=== PATIENT | female | born 1950 | race Two or more races ===

== ENCOUNTER 2023-11-24 14:08 | Inpatient (IN) | payer MEDICARE ==
[~2023-11-24] VITALS: Ht 154.9 cm; Wt 74.5 kg
[2023-11-24 15:10] LABS: BASOPHILS # (AUTO) 0.1 K/uL (0.0-0.2); BASOPHILS % (AUTO) 0.9 % (0.0-2.0); EOSINOPHILS % (AUTO) 0.6 % (0.0-6.0); HEMATOCRIT 39 % (33-45); HEMOGLOBIN 13.2 g/dL (11.5-14.8); LYMPHOCYTES # (AUTO) 1.8 K/uL (0.8-4.8); LYMPHOCYTES % (AUTO) 23.4 % (20.0-44.0); MEAN CORPUSCULAR HEMOGLOBIN 32 PG (26.0-33.0); MEAN CORPUSCULAR HGB CONC 34 g/dl (31.0-36.0); MEAN CORPUSCULAR VOLUME 95 fL (82-100); MONOCYTES # (AUTO) 0.5 K/uL (0.1-1.30); MONOCYTES % (AUTO) 6.4 % (2.0-12.0); NEUTROPHILS # (AUTO) 5.4 K/uL (1.8-8.9); NEUTROPHILS % (AUTO) 68.7 % (43.0-81.0); PLATELET COUNT (AUTO) 328 K/uL (150-450); RED BLOOD CELL COUNT(AUTO) 4.08 MIL/uL (4.0-5.2); RED CELL DISTRIBUTION WIDTH 13.6 % (11.5-15.0); WHITE BLOOD COUNT (AUTO) 7.9 K/uL (4.3-11.0)
[2023-11-24] MEDS ORDERED: LOSA50TA39 PO (15:14)
[2023-11-24] MEDS ORDERED: CHOL200074 PO (15:14)
[2023-11-24] MEDS ORDERED: AMLO-212 PO (15:14)
[2023-11-24 15:19] LABS: CALCIUM, SERUM 8.7 mg/dL (8.5-10.1); CARBON DIOXIDE 29 mmol/L (21-32); CHLORIDE 100 mmol/L (98-107); CREATININE 0.7 mg/dL (0.6-1.3); GLUCOSE 109 mg/dL (74-106); SODIUM SERUM 138 mmol/L (136-145); UREA NITROGEN, BLOOD 10 mg/dL (7-18)
[2023-11-24 15:21] LABS: D-DIMER 0.31 mg/L(FEU (0.17-0.50); INR 0.99 (0.91-1.10); PARTIAL THROMBOPLASTIN TIME 25.4 SEC (24.3-34.3); PROTHROMBIN TIME 10.5 SECS (9.2-11.1)
[2023-11-24 15:33] LABS: NT-PRO BNP 60 pg/mL (0-125)
[2023-11-24] MEDS: ASPIRIN 81 MG TAB.CHEW PO SCH (17:30)
[2023-11-24] MEDS ORDERED: ONDANSETRON HCL/PF 4 MG/2 ML VIAL IVP PRN (17:30)
[2023-11-24] MEDS ORDERED: ACETAMINOPHEN 325 MG TABLET PO PRN (17:30)
[2023-11-24] MEDS: POTASSIUM CHLORIDE 20 MEQ TAB.PRT.SR PO ONE (17:39)
[2023-11-24] MEDS: ENOXAPARIN SODIUM 40 MG/0.4 ML DISP.SYRIN SQ SCH (17:39)
[2023-11-24 17:45] VITALS: BP 153/94; TEMP 98.2; O2SAT 95
[2023-11-24 20:13] VITALS: BP 122/68; TEMP 98.1; O2SAT 93
[2023-11-24 20:50] VITALS: BP 122/68; TEMP 98.1; O2SAT 95
[2023-11-24] MEDS: ATORVASTATIN 10 MG TABLET PO SCH (21:22)
[2023-11-25 00:05] VITALS: BP 131/79; TEMP 98.2; O2SAT 93
[2023-11-25 04:09] VITALS: BP 156/88; TEMP 97.5; O2SAT 95
[2023-11-25 07:50] LABS: BASOPHILS # (AUTO) 0.1 K/uL (0.0-0.2); BASOPHILS % (AUTO) 0.6 % (0.0-2.0); EOSINOPHILS # (AUTO) 0.1 K/uL (0.0-0.7); EOSINOPHILS % (AUTO) 1.3 % (0.0-6.0); HEMATOCRIT 42 % (33-45); LYMPHOCYTES # (AUTO) 2.1 K/uL (0.8-4.8); LYMPHOCYTES % (AUTO) 26.7 % (20.0-44.0); MEAN CORPUSCULAR HEMOGLOBIN 32 PG (26.0-33.0); MEAN CORPUSCULAR HGB CONC 34 g/dl (31.0-36.0); MEAN CORPUSCULAR VOLUME 96 fL (82-100); MONOCYTES # (AUTO) 0.6 K/uL (0.1-1.30); MONOCYTES % (AUTO) 7.3 % (2.0-12.0); NEUTROPHILS # (AUTO) 5.1 K/uL (1.8-8.9); NEUTROPHILS % (AUTO) 64.1 % (43.0-81.0); PLATELET COUNT (AUTO) 336 K/uL (150-450); RED BLOOD CELL COUNT(AUTO) 4.34 MIL/uL (4.0-5.2); RED CELL DISTRIBUTION WIDTH 13.9 % (11.5-15.0); WHITE BLOOD COUNT (AUTO) 7.9 K/uL (4.3-11.0)
[2023-11-25 07:54] LABS: CALCIUM, SERUM 8.7 mg/dL (8.5-10.1); CREATININE 0.8 mg/dL (0.6-1.3); MAGNESIUM 2.3 mg/dL (1.8-2.4); POTASSIUM 3.2 mmol/L (3.5-5.1)
[2023-11-25 08:00] VITALS: BP 163/89; TEMP 98.2; O2SAT 94
[2023-11-25] MEDS: LOSARTAN POTASSIUM 50 MG TABLET PO SCH (08:53)
[2023-11-25] MEDS: AMLODIPINE BESYLATE 5 MG TABLET PO SCH (08:54)
[2023-11-25] MEDS: CHOLECALCIFEROL 1,000 UNIT TABLET (VIT D3) PO SCH (08:54)
[2023-11-25 09:28] LABS: THYROID STIMULATING HORMONE 5.45 uIU/mL (0.358-3.74)
[2023-11-25] MEDS: VALSARTAN 80 MG TABLET PO SCH (10:08)
[2023-11-25] MEDS: POTASSIUM CHLORIDE 20 MEQ TAB.PRT.SR PO ONE (11:40)
[2023-11-25 16:00] VITALS: BP 167/94; TEMP 97.9; O2SAT 98
[2023-11-25] MEDS ORDERED: VALS80TA31 PO (18:24)
[2023-11-25] MEDS ORDERED: ATORVASTATIN 10 MG TABLET PO SCH (22:00)
== END 2023-11-25 20:40 | disposition home or self-care (01) | DRG 303 ==
LOC: ER 14:11 → TELE 16:30
PROVIDERS: ADMIT Nurse Practitioner Acute Care; ATTEND Nurse Practitioner Acute Care
DX: I25.10 Atherosclerotic heart disease of native coronary artery without angina pectoris (principal); E66.2 Morbid (severe) obesity with alveolar hypoventilation; D68.69 Other thrombophilia; E03.9 Hypothyroidism, unspecified; E78.5 Hyperlipidemia, unspecified; E87.6 Hypokalemia; I10 Essential (primary) hypertension; Z68.31 Body mass index [BMI] 31.0-31.9, adult
CPT/HCPCS: 36415; 71045-TC; 80048-TC; 80061-TC; 83735-TC; 83880; 84100-TC; 84439-TC; 84443-TC; 84484-TC; 85025-TC; 85378-TC; 85730-TC; 93307-TC; G0378; J1650

== ENCOUNTER 2024-05-30 10:04 | Inpatient (IN) | payer MEDICARE, OTHER ==
[~2024-05-30] VITALS: Ht 154.9 cm; Wt 59.4 kg
[~2024-05-30 10:04] MED LIST: AMLO-212 PO; LOSA50TA39 PO; VALS80TA31 PO
[2024-05-30 10:36] LABS: BASOPHILS % (AUTO) 0.5 % (0.0-2.0); EOSINOPHILS # (AUTO) 0.1 K/uL (0.0-0.7); EOSINOPHILS % (AUTO) 2.2 % (0.0-6.0); HEMATOCRIT 37 % (33-45); HEMOGLOBIN 12.9 g/dL (11.5-14.8); LYMPHOCYTES # (AUTO) 2.5 K/uL (0.8-4.8); LYMPHOCYTES % (AUTO) 43.5 % (20.0-44.0); MEAN CORPUSCULAR HEMOGLOBIN 33 PG (26.0-33.0); MEAN CORPUSCULAR HGB CONC 35 g/dl (31.0-36.0); MEAN CORPUSCULAR VOLUME 96 fL (82-100); MONOCYTES # (AUTO) 0.5 K/uL (0.1-1.30); MONOCYTES % (AUTO) 8.2 % (2.0-12.0); NEUTROPHILS # (AUTO) 2.6 K/uL (1.8-8.9); NEUTROPHILS % (AUTO) 45.6 % (43.0-81.0); PLATELET COUNT (AUTO) 269 K/uL (150-450); RED CELL DISTRIBUTION WIDTH 13.8 % (11.5-15.0); WHITE BLOOD COUNT (AUTO) 5.7 K/uL (4.3-11.0)
[2024-05-30 10:47] LABS: CALCIUM, SERUM 8.8 mg/dL (8.5-10.1); CARBON DIOXIDE 34 mmol/L (21-32); CHLORIDE 105 mmol/L (98-107); CREATININE 0.9 mg/dL (0.6-1.3); GLUCOSE 104 mg/dL (74-106); POTASSIUM 2.9 mmol/L (3.5-5.1); SODIUM SERUM 139 mmol/L (136-145); UREA NITROGEN, BLOOD 14 mg/dL (7-18)
[2024-05-30 10:52] LABS: ALANINE AMINOTRANSFERASE 15 U/L (12-78); ALBUMIN 3.5 g/dL (3.4-5.0); ALKALINE PHOSPHATASE 62 U/L (46-116); ASPARTATE AMINOTRANSFERASE 15 U/L (15-37); BILIRUBIN,DIRECT 0.2 mg/dL (0.0-0.2); BILIRUBIN,TOTAL 1.5 mg/dL (0.2-1.0); TOTAL PROTEIN, SERUM 7.3 g/dL (6.4-8.2)
[2024-05-30] MEDS ORDERED: LEVO112T7 PO (11:02)
[2024-05-30] MEDS ORDERED: MIRT-90 PO (11:02)
[2024-05-30] MEDS ORDERED: ONDANSETRON HCL/PF 4 MG/2 ML VIAL IVP PRN (12:00)
[2024-05-30] MEDS ORDERED: hydrALAZINE HCL IV 20 MG VIAL IV PRN (12:00)
[2024-05-30] MEDS ORDERED: MORPHINE SULFATE INJ 2 MG/ML DISP.SYRIN IV PRN (12:00)
[2024-05-30] MEDS ORDERED: ACETAMINOPHEN 325 MG TABLET PO PRN (12:00)
[2024-05-30 12:45] VITALS: BP 152/86; TEMP 98.3; O2SAT 94
[2024-05-30] MEDS: ENOXAPARIN SODIUM 40 MG/0.4 ML DISP.SYRIN SQ SCH (13:13)
[2024-05-30] MEDS: MIRTAZAPINE 15 MG TABLET PO SCH (17:59)
[2024-05-30] MEDS: POTASSIUM CHLORIDE 20 MEQ TAB.PRT.SR PO SCH (18:33)
[2024-05-30 20:00] VITALS: BP 137/76; TEMP 97.5; O2SAT 94
[2024-05-31] VITALS: BP 126/75; TEMP 98.1; O2SAT 94
[2024-05-31 04:00] VITALS: BP 150/90; TEMP 98.6; O2SAT 96
[2024-05-31 07:39] LABS: BASOPHILS # (AUTO) 0.1 K/uL (0.0-0.2); BASOPHILS % (AUTO) 0.9 % (0.0-2.0); EOSINOPHILS # (AUTO) 0.1 K/uL (0.0-0.7); EOSINOPHILS % (AUTO) 2.1 % (0.0-6.0); HEMATOCRIT 37 % (33-45); HEMOGLOBIN 12.6 g/dL (11.5-14.8); LYMPHOCYTES # (AUTO) 3.9 K/uL (0.8-4.8); LYMPHOCYTES % (AUTO) 54.6 % (20.0-44.0); MEAN CORPUSCULAR HEMOGLOBIN 34 PG (26.0-33.0); MEAN CORPUSCULAR HGB CONC 35 g/dl (31.0-36.0); MEAN CORPUSCULAR VOLUME 97 fL (82-100); MONOCYTES # (AUTO) 0.6 K/uL (0.1-1.30); MONOCYTES % (AUTO) 8.5 % (2.0-12.0); NEUTROPHILS # (AUTO) 2.4 K/uL (1.8-8.9); NEUTROPHILS % (AUTO) 33.9 % (43.0-81.0); PLATELET COUNT (AUTO) 273 K/uL (150-450); RED BLOOD CELL COUNT(AUTO) 3.77 MIL/uL (4.0-5.2); RED CELL DISTRIBUTION WIDTH 14.4 % (11.5-15.0); WHITE BLOOD COUNT (AUTO) 7.1 K/uL (4.3-11.0)
[2024-05-31 07:56] LABS: ALBUMIN 3.2 g/dL (3.4-5.0); BILIRUBIN,TOTAL 1.2 mg/dL (0.2-1.0); CALCIUM, SERUM 8.9 mg/dL (8.5-10.1); CREATININE 0.9 mg/dL (0.6-1.3); MAGNESIUM 2.3 mg/dL (1.8-2.4); PHOSPHORUS 3.8 mg/dL (2.5-4.9); POTASSIUM 3.5 mmol/L (3.5-5.1); TOTAL PROTEIN, SERUM 6.9 g/dL (6.4-8.2)
[2024-05-31 08:00] VITALS: BP 175/93; TEMP 97.5; O2SAT 96
[2024-05-31] MEDS ORDERED: AMLODIPINE BESYLATE 5 MG TABLET PO SCH (09:00)
[2024-05-31] MEDS: DOCUSATE SODIUM 100 MG CAPSULE PO SCH (09:34)
[2024-05-31] MEDS: AMLODIPINE BESYLATE 5 MG TABLET PO SCH (09:34)
[2024-05-31] MEDS: LEVOTHYROXINE SODIUM 112 MCG TABLET PO SCH (09:34)
[2024-05-31] MEDS: POLYETHYLENE GLYCOL 3350 17 GM POWD.PACK PO SCH (09:34)
[2024-05-31 12:00] VITALS: BP 145/81; TEMP 97; O2SAT 96
[2024-05-31] MEDS ORDERED: AMLO-212 PO (12:28)
[2024-05-31] MEDS ORDERED: ATOR20TA PO (12:28)
[2024-05-31] MEDS ORDERED: ASPI-1420 PO (12:28)
[2024-05-31 18:15] VITALS: BP 135/79
== END 2024-05-31 18:25 | disposition home or self-care (01) | DRG 313 ==
LOC: ER 10:22 → TELE1 12:24
PROVIDERS: ADMIT Internal Medicine; ATTEND Internal Medicine
DX: R07.9 Chest pain, unspecified (principal); E03.9 Hypothyroidism, unspecified; E87.6 Hypokalemia; I10 Essential (primary) hypertension; Z79.890 Hormone replacement therapy; Z79.899 Other long term (current) drug therapy
CPT/HCPCS: 36415; 71045-TC; 80048-TC; 80053-TC; 80076-TC; 83735-TC; 84100-TC; 84484-TC; 85025-TC; 85378-TC; G0378; J1650

== ENCOUNTER 2024-07-23 11:54 | Inpatient (IN) | payer MEDICARE, OTHER ==
[~2024-07-23] VITALS: Ht 154.9 cm; Wt 57.2 kg
[~2024-07-23 11:54] MED LIST changes: +ASPI-1420 PO; +ATOR20TA PO; +LEVO112T7 PO; -LOSA50TA39 PO; +MIRT-90 PO; -VALS80TA31 PO
[2024-07-23 12:34] LABS: BASOPHILS # (AUTO) 0.1 K/uL (0.0-0.2); BASOPHILS % (AUTO) 0.8 % (0.0-2.0); EOSINOPHILS # (AUTO) 0.1 K/uL (0.0-0.7); EOSINOPHILS % (AUTO) 1.2 % (0.0-6.0); HEMATOCRIT 37 % (33-45); HEMOGLOBIN 12.7 g/dL (11.5-14.8); LYMPHOCYTES # (AUTO) 2.2 K/uL (0.8-4.8); LYMPHOCYTES % (AUTO) 34.1 % (20.0-44.0); MEAN CORPUSCULAR HEMOGLOBIN 34 PG (26.0-33.0); MEAN CORPUSCULAR HGB CONC 34 g/dl (31.0-36.0); MEAN CORPUSCULAR VOLUME 98 fL (82-100); MONOCYTES # (AUTO) 0.4 K/uL (0.1-1.30); MONOCYTES % (AUTO) 6.5 % (2.0-12.0); NEUTROPHILS # (AUTO) 3.8 K/uL (1.8-8.9); NEUTROPHILS % (AUTO) 57.4 % (43.0-81.0); PLATELET COUNT (AUTO) 357 K/uL (150-450); RED BLOOD CELL COUNT(AUTO) 3.79 MIL/uL (4.0-5.2); WHITE BLOOD COUNT (AUTO) 6.6 K/uL (4.3-11.0)
[2024-07-23 12:53] LABS: CALCIUM, SERUM 8.7 mg/dL (8.5-10.1); CARBON DIOXIDE 34 mmol/L (21-32); CHLORIDE 103 mmol/L (98-107); CREATININE 0.9 mg/dL (0.6-1.3); GLUCOSE 99 mg/dL (74-106); POTASSIUM 3.3 mmol/L (3.5-5.1); SODIUM SERUM 139 mmol/L (136-145); UREA NITROGEN, BLOOD 14 mg/dL (7-18)
[2024-07-23] MEDS ORDERED: LEVO100T9 PO (13:49)
[2024-07-23] MEDS ORDERED: ONDANSETRON HCL/PF 4 MG/2 ML VIAL IVP PRN (18:00)
[2024-07-23] MEDS ORDERED: ACETAMINOPHEN 325 MG TABLET PO PRN (18:00)
[2024-07-23 20:00] VITALS: BP 143/79; TEMP 98.6; O2SAT 97
[2024-07-23 20:05] VITALS: BP 143/79; TEMP 98.6; O2SAT 97
[2024-07-23] MEDS: MIRTAZAPINE 15 MG TABLET PO SCH (20:53)
[2024-07-23] MEDS: ENOXAPARIN SODIUM 40 MG/0.4 ML DISP.SYRIN SQ SCH (20:53)
[2024-07-23] MEDS: ATORVASTATIN 10 MG TABLET PO SCH (21:51)
[2024-07-23] MEDS: POTASSIUM CHLORIDE 20 MEQ TAB.PRT.SR PO ONE (22:58)
[2024-07-24] VITALS: BP 134/69; TEMP 98.2; O2SAT 95
[2024-07-24 04:00] VITALS: BP 101/64; TEMP 98.1; O2SAT 96
[2024-07-24 05:03] VITALS: BP 101/64; TEMP 98.1; O2SAT 19
[2024-07-24 06:27] LABS: CREATININE 0.8 mg/dL (0.6-1.3); MAGNESIUM 2.2 mg/dL (1.8-2.4); PHOSPHORUS 4.5 mg/dL (2.5-4.9); POTASSIUM 3.6 mmol/L (3.5-5.1)
[2024-07-24 06:40] LABS: BASOPHILS # (AUTO) 0.1 K/uL (0.0-0.2); BASOPHILS % (AUTO) 0.9 % (0.0-2.0); EOSINOPHILS # (AUTO) 0.1 K/uL (0.0-0.7); EOSINOPHILS % (AUTO) 1.6 % (0.0-6.0); HEMATOCRIT 35 % (33-45); HEMOGLOBIN 12.3 g/dL (11.5-14.8); LYMPHOCYTES # (AUTO) 3.7 K/uL (0.8-4.8); LYMPHOCYTES % (AUTO) 48.4 % (20.0-44.0); MEAN CORPUSCULAR HEMOGLOBIN 34 PG (26.0-33.0); MEAN CORPUSCULAR HGB CONC 35 g/dl (31.0-36.0); MEAN CORPUSCULAR VOLUME 96 fL (82-100); MONOCYTES # (AUTO) 0.5 K/uL (0.1-1.30); MONOCYTES % (AUTO) 7.2 % (2.0-12.0); NEUTROPHILS # (AUTO) 3.2 K/uL (1.8-8.9); NEUTROPHILS % (AUTO) 41.9 % (43.0-81.0); PLATELET COUNT (AUTO) 340 K/uL (150-450); RED BLOOD CELL COUNT(AUTO) 3.68 MIL/uL (4.0-5.2); RED CELL DISTRIBUTION WIDTH 13.3 % (11.5-15.0); WHITE BLOOD COUNT (AUTO) 7.6 K/uL (4.3-11.0)
[2024-07-24 08:00] VITALS: BP 132/73; TEMP 98.2; O2SAT 100
[2024-07-24] MEDS: ASPIRIN 81 MG TAB.CHEW PO SCH (08:49)
[2024-07-24] MEDS: LEVOTHYROXINE SODIUM 100 MCG TABLET PO SCH (08:49)
[2024-07-24] MEDS: AMLODIPINE BESYLATE 5 MG TABLET PO SCH (08:50)
[2024-07-24] MEDS: DOCUSATE SODIUM 100 MG CAPSULE PO SCH (14:25)
[2024-07-24] MEDS: PANTOPRAZOLE 40 MG VIAL IV SCH (14:25)
[2024-07-24 16:56] VITALS: BP 105/64; TEMP 98.2; O2SAT 94
[2024-07-24 20:00] VITALS: BP 120/76; TEMP 98.2; O2SAT 95
[2024-07-24] MEDS: MIRTAZAPINE 15 MG TABLET PO SCH (21:25)
[2024-07-25] VITALS: BP 121/77; TEMP 98.1; O2SAT 97
[2024-07-25 04:28] VITALS: BP 113/71; TEMP 98; O2SAT 95
[2024-07-25 07:00] VITALS: BP 132/78; TEMP 97.5; O2SAT 93
[2024-07-25 11:30] VITALS: BP 122/68; TEMP 98.2; O2SAT 93
[2024-07-25] MEDS ORDERED: PANT40TA2 PO (12:19)
[2024-07-25] MEDS ORDERED: ASPI-1169 PO (12:20)
[2024-07-25] MEDS: MAGNESIUM HYDROXIDE 30 ML UDC PO PRN (13:24)
[2024-07-25] MEDS ORDERED: POLYETHYLENE GLYCOL 3350 17 GM POWD.PACK PO PRN (13:30)
== END 2024-07-25 16:16 | disposition home or self-care (01) | DRG 392 ==
LOC: ER 11:57 → TELE 17:32
PROVIDERS: ADMIT Nurse Practitioner Acute Care; ATTEND Nurse Practitioner Acute Care
DX: K21.9 Gastro-esophageal reflux disease without esophagitis (principal); Z88.1 Allergy status to other antibiotic agents; I16.0 Hypertensive urgency; I25.10 Atherosclerotic heart disease of native coronary artery without angina pectoris; E87.6 Hypokalemia; E03.9 Hypothyroidism, unspecified; I10 Essential (primary) hypertension; Z79.82 Long term (current) use of aspirin; Z79.899 Other long term (current) drug therapy; Z79.890 Hormone replacement therapy
CPT/HCPCS: 36415; 71045-TC; 80048-TC; 80061-TC; 83735-TC; 84100-TC; 84443-TC; 84484-TC; 85025-TC; 93307-TC; 97110-TC; 97116-TC; 97530-TC; G0378; J1650; J2470